=== PATIENT | female | born 1970 | race Caucasian/White ===

== ENCOUNTER 2018-12-27 01:42 | Inpatient (IN) | payer BC ==
[2018-12-27] VITALS (18 sets, daily range): BP systolic 98–133; BP diastolic 68–88
[~2018-12-27] VITALS: Ht 167.6 cm; Wt 71.2 kg
[2018-12-27 02:12] LABS: BASO # 0.1 x10^3/uL (0.0-0.2); BASO % 1 % (0-3); EOS % 1 % (0-3); HEMATOCRIT 39.1 % (36.0-47.0); HEMOGLOBIN 13.4 g/dL (12.0-15.5); LYMPH # 2.5 x10^3/uL (1.0-4.8); LYMPH % 37 % (24-48); MEAN CORPUSCULAR HEMOGLOBIN 31 pg (25-35); MEAN CORPUSCULAR HGB CONC 34 g/dL (31-37); MEAN CORPUSCULAR VOLUME 91 fL (79-100); MONO # 0.4 x10^3/uL (0.0-1.1); MONO % 6 % (0-9); NEUT # 3.8 x10^3/uL (1.8-7.7); NEUT % 55 % (31-73); PLATELET COUNT 214 x10^3/uL (140-400); RED BLOOD COUNT 4.31 x10^6/uL (3.50-5.40); RED CELL DISTRIBUTION WIDTH 13.8 % (11.5-14.5); WHITE BLOOD COUNT 6.8 x10^3/uL (4.0-11.0)
[2018-12-27 02:18] LABS: BARBITURATES NEG (NEG); BENZODIAZEPINES NEG (NEG); CANNABINOIDS NEG (NEG); COCAINE NEG (NEG); METHADONE NEG (NEG); OPIATES POS (NEG); PHENCYCLIDINE NEG (NEG)
[2018-12-27 02:18] LABS: CALCIUM 9.2 mg/dL (8.5-10.1); GFR 59.2; POTASSIUM 4.1 mmol/L (3.5-5.1)
[2018-12-27 02:21] LABS: AMPHETAMINE/METHAMPHETAMINE NEG (NEG)
[2018-12-27 02:21] LABS: ACETAMIN 125.12 mcg/ml (10-30); SALIC < 2.8 mg/dL (2.8-20.0)
[2018-12-27 02:22] LABS: ETHANOL < 10 mg/dL (0-10)
[2018-12-27 02:23] LABS: ALBUMIN 3.8 g/dL (3.4-5.0); ALBUMIN/GLOBULIN RATIO 1.2 (1.0-1.7); TOTAL BILIRUBIN 0.7 mg/dL (0.2-1.0)
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
[2018-12-27] MEDS ORDERED: NALOXONE 2 MG/2 ML DISP.SYRIN. IV ONE (03:15)
[2018-12-27] MEDS ORDERED: IV NORMAL SALINE 1000ML BAG 1,000 ML IV ONE (03:15)
[2018-12-27] MEDS ORDERED: ACETYLCYSTEINE IV ONE ×3 (03:30→09:00)
[2018-12-27] MEDS ORDERED: ONDANSETRON PF 4 MG/2 ML VIAL. IV ONE (03:30)
[2018-12-27] MEDS ORDERED: DEXTROSE 5% IV ONE ×3 (03:30→09:00)
[2018-12-27] MEDS ORDERED: ONDANSETRON PF 4 MG/2 ML VIAL. IV PRN (04:00)
[2018-12-27 06:58] LABS: CALCIUM 8.1 mg/dL (8.5-10.1); CREATININE 0.8 mg/dL (0.6-1.0); GFR 76.6; POTASSIUM 3.6 mmol/L (3.5-5.1)
[2018-12-27 07:02] LABS: ACETAMIN 73.1 mcg/ml (10-30)
[2018-12-27 07:04] LABS: ALBUMIN 2.9 g/dL (3.4-5.0); ALBUMIN/GLOBULIN RATIO 0.8 (1.0-1.7); TOTAL BILIRUBIN 0.5 mg/dL (0.2-1.0); TOTAL PROTEIN 6.7 g/dL (6.4-8.2)
--- NOTE | 2018-12-27 07:37 | EKG ---
[facility] [address] [place] [address] Test Date: 2018-12-27 Test Time: 01:52:27 Pat Name: NUBIA HOWARD Department: Room: Gender: F Pressure Dispatcher: : 1970 Requested By: LIZZETH HERNANDEZ Order Number: [id number] Reading MD: Measurements Intervals [place] Rate: 86 P: 64 RI: 120 QRS: 50 QRSD: 76 T: 52 QT: 372 QTc: 448 Interpretive Statements SINUS RHYTHM NON SPECIFIC T ABNORMALITY BORDERLINE ECG No previous ECG available for comparison
[2018-12-27] MEDS ORDERED: QUET100T4 PO (09:27)
[2018-12-27] MEDS ORDERED: VENL37.57 PO (09:49)
[2018-12-27 13:55] LABS: ACETAMIN 26.44 mcg/ml (10-30)
--- NOTE | 2018-12-27 17:36 | PDOC1 ---
History and Physical Date of Admission Date of Admission DATE: 12/27/18 TIME: 17:20 Identification/Chief Complaint Chief Complaint drug overdose Source Source: Caregiver, Chart review, Patient History of Present Illness History of Present Illness 40 year old female hx of bipolar d/o with prior suicide attempt (DO 1 year ago who presents to the ED via EMS after an intentional drug overdose. patient alert and awake and oriented now and able to answer questions. son and mother also at the bedside. patient states she would like to go home saying she just wanted to "sleep" but didn't expand on those details. her states that is code for I want to . per records patient Overdosed on oxycodone, her mother's pills. family attempted to contact her but unable to do so as she turned off phone. she was found and EMS subsequently brought her in. patient denies drinking or taking another medications. no pain or discomfort. no nausea vomiting or diarrhea. she states at present she doesn't have plan. in the ED patient received narcan. tylenol level elevated at 125 but has since normalized after starting acetylcysteine. patient and family agreeable to inpatient psych treatment. patient initially admitted to ICU Past Medical History Past Medical History Bipolar d/o, hx of prior suicide attemp Past Surgical History Past Surgical History none that she is aware Family History Family History unclear if family hx of psych Social History Smoke: No ALCOHOL: none Drugs: None Current Problem List Problem List Problems Medical Problems: (1) Bipolar 1 disorder Status: Acute (2) Depression Status: Acute (3) Intentional overdose of drug in tablet form Status: Acute Current Medications Current Medications Current Medications Sodium Chloride 1,000 ml @ 1,000 mls/hr 1X ONCE IV Last administered on 12/27/18at 03:45; Start 12/27/18 at 03:15; Stop 12/27/18 at 04:14; Status DC Naloxone HCl (Narcan) 2 mg 1X ONCE IV Last administered on 12/27/18at 03:29; Start 12/27/18 at 03:15; Stop 12/27/18 at 03:19; Status DC Acetylcysteine 11.01 gm/Dextrose 255.05 ml @ 200 mls/ hr 1X ONCE IV Last administered on 12/27/18at 03:35; Start 12/27/18 at 03:30; Stop 12/27/18 at 04:46; Status DC Acetylcysteine 3.67 gm/Dextrose 518.35 ml @ 125 mls/ hr 1X ONCE IV Last administered on 12/27/18at 05:31; Start 12/27/18 at 05:00; Stop 12/27/18 at 09:08; Status DC Acetylcysteine 7.34 gm/Dextrose 1,036.7 ml @ 62.5 mls/ hr 1X ONCE IV Last administered on 12/27/18at 09:30; Start 12/27/18 at 09:00; Stop 12/28/18 at 01:35 Ondansetron HCl (Zofran) 4 mg 1X ONCE IV Last administered on 12/27/18at 03:29; Start 12/27/18 at 03:30; Stop 12/27/18 at 03:33; Status DC Ondansetron HCl (Zofran) 4 mg PRN Q8HRS PRN IV NAUSEA/VOMITING Last administered on 12/27/18at 06:48; Start 12/27/18 at 04:00; Stop 12/28/18 at 03:59 Active Scripts Active Reported Venlafaxine Hcl Er (Venlafaxine Hcl) 37.5 Mg Cap.er.24h 1 Cap PO DAILY Seroquel (Quetiapine Fumarate) 100 Mg Tablet 1 Tab PO QHS Allergies Allergies: Coded Allergies: azithromycin (Verified Allergy, Severe, 12/27/18) 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 fluconazole (Verified Allergy, Severe, Hives, 12/27/18) swelling of lips metronidazole (Verified Allergy, Severe, Hives, 12/27/18) swelling red dye (Verified Allergy, Severe, Hives, 12/27/18) swelling ROS Review of System CONSTITUTIONAL: No fever or chills EYES: No recent changes SKIN: No rash or itching CARDIOVASCULAR: No chest pain, syncope, palpitations, or edema RESPIRATORY: No SOB or cough GASTROINTESTINAL: No nausea, vomiting or abdominal pain NEUROLOGICAL: No headaches or weakness ENDOCRINE: No cold or heat intolerance GENITOURINARY: No urgency or frequency of urination MUSCULOSKELETAL: No back pain or joint pain LYMPHATICS: No enlarged lymph nodes PSYCHIATRIC: No anxiety or depression Physical Exam Physical Exam GENERAL: No apparent distress. Alert and oriented. HEENT: Head normocephalic, atraumatic. NECK: Supple LUNGS: Clear to auscultation. HEART: RRR, S1, S2 present, pulses intact ABDOMEN: Soft, positive bowel sounds. EXTREMITIES: No cyanosis or edema. NEUROLOGIC: Normal speech, normal tone PSYCHIATRIC: Normal affect, normal mood. SKIN: No ulceration. Vitals Vitals Vital Signs Date Time Temp Pulse Resp B/P (MAP) Pulse Ox O2 Delivery O2 Flow Rate FiO2 12/27/18 16:55 58 22 108/75 (86) 100 Room Air 12/27/18 15:59 98.3 98.3 Labs Labs Laboratory Tests Test 12/27/18 01:50 12/27/18 02:00 12/27/18 06:30 12/27/18 11:50 White Blood Count 6.8 x10^3/uL (4.0-11.0) Red Blood Count 4.31 x10^6/uL (3.50-5.40) Hemoglobin 13.4 g/dL (12.0-15.5) Hematocrit 39.1 % (36.0-47.0) Mean Corpuscular Volume 91 fL (79-100) Mean Corpuscular Hemoglobin 31 pg (25-35) Mean Corpuscular Hemoglobin Concent 34 g/dL (31-37) Red Cell Distribution Width 13.8 % (11.5-14.5) Platelet Count 214 x10^3/uL (140-400) Neutrophils (%) (Auto) 55 % (31-73) Lymphocytes (%) (Auto) 37 % (24-48) Monocytes (%) (Auto) 6 % (0-9) Eosinophils (%) (Auto) 1 % (0-3) Basophils (%) (Auto) 1 % (0-3) Neutrophils # (Auto) 3.8 x10^3/uL (1.8-7.7) Lymphocytes # (Auto) 2.5 x10^3/uL (1.0-4.8) Monocytes # (Auto) 0.4 x10^3/uL (0.0-1.1) Eosinophils # (Auto) 0.0 x10^3/uL (0.0-0.7) Basophils # (Auto) 0.1 x10^3/uL (0.0-0.2) Sodium Level 143 mmol/L (136-145) 142 mmol/L (136-145) Potassium Level 4.1 mmol/L (3.5-5.1) 3.6 mmol/L (3.5-5.1) Chloride Level 106 mmol/L (98-107) 107 mmol/L (98-107) Carbon Dioxide Level 27 mmol/L (21-32) 25 mmol/L (21-32) Anion Gap 10 (6-14) 10 (6-14) Blood Urea Nitrogen 6 mg/dL (7-20) 6 mg/dL (7-20) Creatinine 1.0 mg/dL (0.6-1.0) 0.8 mg/dL (0.6-1.0) Estimated GFR (Cockcroft-Gault) 59.2 76.6 BUN/Creatinine Ratio 6 (6-20) 8 (6-20) Glucose Level 88 mg/dL (70-99) 113 mg/dL (70-99) Calcium Level 9.2 mg/dL (8.5-10.1) 8.1 mg/dL (8.5-10.1) Total Bilirubin 0.7 mg/dL (0.2-1.0) 0.5 mg/dL (0.2-1.0) Aspartate Amino Transf (AST/SGOT) 23 U/L (15-37) 17 U/L (15-37) Alanine Aminotransferase (ALT/SGPT) 23 U/L (14-59) 19 U/L (14-59) Alkaline Phosphatase 76 U/L (46-116) 57 U/L (46-116) Total Protein 7.0 g/dL (6.4-8.2) 6.7 g/dL (6.4-8.2) Albumin 3.8 g/dL (3.4-5.0) 2.9 g/dL (3.4-5.0) Albumin/Globulin Ratio 1.2 (1.0-1.7) 0.8 (1.0-1.7) Salicylates Level < 2.8 mg/dL (2.8-20.0) Salicylate Last Dose Date Salicylate Last Dose Time Acetaminophen Level 125.12 mcg/ml (10-30) 73.1 mcg/ml (10-30) 26.44 mcg/ml (10-30) Acetaminophen Last Dose Date Unknown Acetaminophen Last Dose Time Unknown Ethyl Alcohol Level < 10 mg/dL (0-10) Urine Opiates Screen Pos (NEG) Urine Methadone Screen Neg (NEG) Urine Barbiturates Neg (NEG) Urine Phencyclidine Screen Neg (NEG) Urine Amphetamine/Methamphetamine Neg (NEG) Urine Benzodiazepines Screen Neg (NEG) Urine Cocaine Screen Neg (NEG) Urine Cannabinoids Screen Neg (NEG) Urine Ethyl Alcohol Neg (NEG) Laboratory Tests Test 12/27/18 01:50 12/27/18 02:00 12/27/18 06:30 12/27/18 11:50 White Blood Count 6.8 x10^3/uL (4.0-11.0) Red Blood Count 4.31 x10^6/uL (3.50-5.40) Hemoglobin 13.4 g/dL (12.0-15.5) Hematocrit 39.1 % (36.0-47.0) Mean Corpuscular Volume 91 fL (79-100) Mean Corpuscular Hemoglobin 31 pg (25-35) Mean Corpuscular Hemoglobin Concent 34 g/dL (31-37) Red Cell Distribution Width 13.8 % (11.5-14.5) Platelet Count 214 x10^3/uL (140-400) Neutrophils (%) (Auto) 55 % (31-73) Lymphocytes (%) (Auto) 37 % (24-48) Monocytes (%) (Auto) 6 % (0-9) Eosinophils (%) (Auto) 1 % (0-3) Basophils (%) (Auto) 1 % (0-3) Neutrophils # (Auto) 3.8 x10^3/uL (1.8-7.7) Lymphocytes # (Auto) 2.5 x10^3/uL (1.0-4.8) Monocytes # (Auto) 0.4 x10^3/uL (0.0-1.1) Eosinophils # (Auto) 0.0 x10^3/uL (0.0-0.7) Basophils # (Auto) 0.1 x10^3/uL (0.0-0.2) Sodium Level 143 mmol/L (136-145) 142 mmol/L (136-145) Potassium Level 4.1 mmol/L (3.5-5.1) 3.6 mmol/L (3.5-5.1) Chloride Level 106 mmol/L (98-107) 107 mmol/L (98-107) Carbon Dioxide Level 27 mmol/L (21-32) 25 mmol/L (21-32) Anion Gap 10 (6-14) 10 (6-14) Blood Urea Nitrogen 6 mg/dL (7-20) 6 mg/dL (7-20) Creatinine 1.0 mg/dL (0.6-1.0) 0.8 mg/dL (0.6-1.0) Estimated GFR (Cockcroft-Gault) 59.2 76.6 BUN/Creatinine Ratio 6 (6-20) 8 (6-20) Glucose Level 88 mg/dL (70-99) 113 mg/dL (70-99) Calcium Level 9.2 mg/dL (8.5-10.1) 8.1 mg/dL (8.5-10.1) Total Bilirubin 0.7 mg/dL (0.2-1.0) 0.5 mg/dL (0.2-1.0) Aspartate Amino Transf (AST/SGOT) 23 U/L (15-37) 17 U/L (15-37) Alanine Aminotransferase (ALT/SGPT) 23 U/L (14-59) 19 U/L (14-59) Alkaline Phosphatase 76 U/L (46-116) 57 U/L (46-116) Total Protein 7.0 g/dL (6.4-8.2) 6.7 g/dL (6.4-8.2) Albumin 3.8 g/dL (3.4-5.0) 2.9 g/dL (3.4-5.0) Albumin/Globulin Ratio 1.2 (1.0-1.7) 0.8 (1.0-1.7) Salicylates Level < 2.8 mg/dL (2.8-20.0) Salicylate Last Dose Date Salicylate Last Dose Time Acetaminophen Level 125.12 mcg/ml (10-30) 73.1 mcg/ml (10-30) 26.44 mcg/ml (10-30) Acetaminophen Last Dose Date Unknown Acetaminophen Last Dose Time Unknown Ethyl Alcohol Level < 10 mg/dL (0-10) Urine Opiates Screen Pos (NEG) Urine Methadone Screen Neg (NEG) Urine Barbiturates Neg (NEG) Urine Phencyclidine Screen Neg (NEG) Urine Amphetamine/Methamphetamine Neg (NEG) Urine Benzodiazepines Screen Neg (NEG) Urine Cocaine Screen Neg (NEG) Urine Cannabinoids Screen Neg (NEG) Urine Ethyl Alcohol Neg (NEG) VTE Prophylaxis Ordered VTE Prophylaxis Devices: No VTE Pharmacological Prophylaxi: Yes Assessment/Plan Assessment/Plan ASSESSMENT Intentional Drug overdose with SI Toxic Encephalopathy tylenol toxicity Bipolar disorder PLAN: initially admitted to ICU can transfer to monitored bed follow tylenol level. initially 126 now normal LFTS, tyl level and INR at midnight continue acetylcysteine 1:[address] plan for inpatient psych referral dvt ppx: heparin full code ALEC CABRAL MD Dec 27, 2018 17:36
[2018-12-27] MEDS: VENLAFAXINE XR 37.5 MG CAP.ER.24H. PO SCH (17:49)
[2018-12-27] MEDS ORDERED: QUEtiapine 100 MG TABLET. PO SCH (21:00)
[2018-12-28 00:45] LABS: CALCIUM 8.4 mg/dL (8.5-10.1); CREATININE 1.1 mg/dL (0.6-1.0); POTASSIUM 3.4 mmol/L (3.5-5.1)
[2018-12-28 00:51] LABS: ACETAMIN < 2 mcg/ml (10-30); ALBUMIN/GLOBULIN RATIO 0.9 (1.0-1.7); DIRECT BILIRUBIN 0.2 mg/dL (0.0-0.2); TOTAL BILIRUBIN 0.6 mg/dL (0.2-1.0); TOTAL PROTEIN 6.3 g/dL (6.4-8.2)
[2018-12-28 03:25] VITALS: BP 94/51
[2018-12-28 04:51] LABS: PROTHROMBIN TIME PATIENT 14.3 SEC (11.7-14.0)
[2018-12-28 07:02] VITALS: BP 104/60
[2018-12-28] MEDS: VENLAFAXINE XR 37.5 MG CAP.ER.24H. PO SCH (09:07)
[2018-12-28 11:01] VITALS: BP 115/70
[2018-12-28] MEDS ORDERED: POTASSIUM CHLORIDE 20 MEQ TABLET.ER. PO ONE (14:15)
--- NOTE | 2018-12-28 14:16 | PDOC ---
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 Pt was eating lunch when seen, she seems to have healthy appetite Accompanied by mother Discussed her entering voluntary rehab at [facility] Potassium is 3.4, down from 3.6 D/w nurse Vitals/I&O Vitals/I&O: Vital Signs Date Time Temp Pulse Resp B/P (MAP) Pulse Ox O2 Delivery O2 Flow Rate FiO2 12/28/18 11:01 98.6 65 18 115/70 (85) 100 Room Air 98.6 I & O 12/27/18 12/27/18 12/28/18 15:00 23:00 07:00 Intake Total 150 ml 240 ml 1036.7 ml Output Total 1200 ml 1100 ml Balance -1050 ml -860 ml 1036.7 ml Physical Exam General: Alert, Oriented X3, Cooperative, No acute distress Heart: Regular rate, Normal S1, Normal S2 Lungs: Clear Abdomen: Normal bowel sounds Extremities: No clubbing, No cyanosis Skin: No rashes, No breakdown Labs Labs: Laboratory Tests Test 12/28/18 00:20 12/28/18 04:18 Sodium Level 142 mmol/L (136-145) Potassium Level 3.4 mmol/L (3.5-5.1) Chloride Level 108 mmol/L (98-107) Carbon Dioxide Level 25 mmol/L (21-32) Anion Gap 9 (6-14) Blood Urea Nitrogen 7 mg/dL (7-20) Creatinine 1.1 mg/dL (0.6-1.0) Estimated GFR (Cockcroft-Gault) 53.0 BUN/Creatinine Ratio 6 (6-20) Glucose Level 94 mg/dL (70-99) Calcium Level 8.4 mg/dL (8.5-10.1) Total Bilirubin 0.6 mg/dL (0.2-1.0) Direct Bilirubin 0.2 mg/dL (0.0-0.2) Aspartate Amino Transf (AST/SGOT) 13 U/L (15-37) Alanine Aminotransferase (ALT/SGPT) 17 U/L (14-59) Alkaline Phosphatase 58 U/L (46-116) Total Protein 6.3 g/dL (6.4-8.2) Albumin 3.0 g/dL (3.4-5.0) Albumin/Globulin Ratio 0.9 (1.0-1.7) Acetaminophen Level < 2 mcg/ml (10-30) Acetaminophen Last Dose Date Acetaminophen Last Dose Time Prothrombin Time 14.3 SEC (11.7-14.0) Prothromb Time International Ratio 1.1 (0.8-1.1) Review of Systems Review of Systems: Pt denies fever Pt denies loss of vision Assessment and Plan Assessmemt and Plan Problems Medical Problems: (1) Bipolar 1 disorder Status: Acute (2) Depression Status: Acute (3) Intentional overdose of drug in tablet form Status: Acute (4) Toxic encephalopathy Status: Acute (5) Tylenol toxicity Status: Acute Assessment Bipolar 1 disorder Depression Intentional overdose of drug in tablet form Toxic encephalopathy Tylenol toxicity Plan Discharge pending approval from social Potassium 40mg po Full code DVT prophylaxis Labs PT/OT Home meds Comment Review of Relevant I have reviewed the following items girish (where applicable) has been applied. Medications: Current Medications Medications (Trade) Dose Ordered Sig/Allison Route PRN Reason Start Time Stop Time Status Last Admin Dose Admin Quetiapine Fumarate (SEROquel) 100 mg QHS PO 12/27/18 21:00 12/27/18 22:09 Venlafaxine HCl (Effexor Xr) 37.5 mg DAILY PO 12/27/18 18:00 12/28/18 09:07 PACO IRWIN III, DO Dec 28, 2018 14:16
[2018-12-28 15:00] VITALS: BP 128/81
== END 2018-12-28 16:03 | DRG 917 ==
LOC: ER 01:42 → ED HOLD 03:12 → 1 WEST ICU 07:48 → 6 SOUTH 12-28 14:28
PROVIDERS: ADMIT Internal Medicine; ATTEND Internal Medicine
DX: T40.2X2A Poisoning by other opioids, intentional self-harm, initial encounter (principal); G92 Toxic encephalopathy; T39.1X2A Poisoning by 4-Aminophenol derivatives, intentional self-harm, initial encounter; F31.9 Bipolar disorder, unspecified; Z91.5 Personal history of self-harm; Y92.89 Other specified places as the place of occurrence of the external cause; Z88.8 Allergy status to other drugs, medicaments and biological substances; Z79.899 Other long term (current) drug therapy; Z63.0 Problems in relationship with spouse or partner
CPT/HCPCS: 36415; 80053; 80307; 80329; 82248; 85025; 85610; 93005; 96361; 96365; 96375; G0480; J0132; J2310; J2405; J7030; 99291-25; G0378